=== PATIENT | female | born 2000 | race Caucasian/White ===

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

== ENCOUNTER 2020-02-01 08:59 | Emergency (ER) | payer MEDICAID, OTHER ==
[~2020-02-01] VITALS: Ht 157.5 cm; Wt 81.8 kg
[~2020-02-01 08:59] MED LIST: FLUO-191 PO
[2020-02-01 09:14] VITALS: BP 125/79
== END 2020-02-01 11:57 | disposition left against medical advice (07) ==
LOC: EMS 08:59
DX: R42 Dizziness and giddiness (principal); Z53.21 Procedure and treatment not carried out due to patient leaving prior to being seen by health care provider